=== PATIENT | male | born 1955 | race African-American/Black ===

== ENCOUNTER → 2019-03-29 | Outpatient (CLI) | payer MEDICARE ==
--- NOTE | 2019-03-29 10:51 | Diagnostic Imaging Report ---
EXAM: US ABDOMEN COMPLETE INDICATION: Chronic hepatitis C, dyspepsia, smoker, dietary surveillance. COMPARISON: None TECHNIQUE: Transverse and longitudinal hudson scale and color doppler sonographic images of the abdomen were obtained. FINDINGS: LIVER 16.0 cm in the right midclavicular line. Normal echogenicity of the liver with normal contour, no masses. SPLEEN 9.5 cm in maximum diameter. Normal echogenicity, no masses. GALLBLADDER No gallbladder wall thickening, distension, stone, or pericholecystic fluid. Negative reported sonographic Byrd's sign. BILE DUCTS No intra nor extra-hepatic biliary dilation. Common bile duct measures 0.3 cm PANCREAS: Visualized portions are normal. The pancreatic tail is not well-visualized. RIGHT KIDNEY: 9.7 cm Echogenicity: Normal Collecting System: No hydronephrosis Stones: None Cyst/Mass: None LEFT KIDNEY: 9.8 cm Echogenicity: Normal Collecting System: No hydronephrosis Stones: None Cyst/Mass: None VESSELS: Aorta: Visualized portions are within normal size limits Inferior Vena Cava: Visualized portions are normal Main Portal Vein: 0.9 cm, normal size with hepatopetal flow. FREE FLUID: None IMPRESSION: Mild hepatomegaly. Signed by: Dr. Mikayla Sargent MD on 03/29/2019 10:47 AM
== END ==
LOC: OR 07:55 → EDSTATUS 08:00 → US 08:20
PROVIDERS: ATTEND Internal Medicine Gastroenterology
DX: B18.2 Chronic viral hepatitis C (principal); K30 Functional dyspepsia; E66.9 Obesity, unspecified; Z71.3 Dietary counseling and surveillance; F17.200 Nicotine dependence, unspecified, uncomplicated
CPT/HCPCS: 76700